=== PATIENT | female | born 1930 | race Hispanic/Latino ===

== ENCOUNTER 2016-12-15 10:33 | Inpatient (IN) | payer MEDICARE ==
[2016-12-15 10:34] VITALS: BMI 19.5
--- NOTE | 2016-12-15 11:09 | ED PDOC ---
Arrival/HPI - General Chief Complaint: Trauma Time Seen by Provider: 12/15/16 10:36 Historian: Patient, Family (Daughter) - History of Present Illness Narrative History of Present Illness (Text): 12/15/16 11:05 A 86 year old female, whose past medical history includes hypertension, hyperlipidemia, anemia, osteoporosis and 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 Daughter reports patient tripped 1 week ago, was brought to the emergency room and discharged home after normal xray and CT results. Daughter states patient tripped again 4 days ago landing on her buttock. Patient has been complaining of worsening chest wall pain and dry throat. Patient states the pain is worse with movement. Patient denies any fever , chills, nausea, vomiting, diarrhea, rectal bleeding, abdominal pain, urinary symptoms, chest pain, shortness of breath or any other complaints. PMD: Dr. Phillips Time/Duration: Other (Fall 1 week ago, Fall 4 days ago) Symptom Course: Worsening Quality: Other Context: Home Past Medical History - Provider Review Nursing Documentation Reviewed: Yes - Infectious Disease Hx of Infectious Diseases: None - Tetanus Immunization Tetanus Immunization: Unknown - Reproductive Menopause: Yes - Cardiac Hx OH: Yes Hx Hypertension: Yes - Pulmonary Hx Pulmonary Embolism: Yes - Neurological Hx Neurological Disorder: No - HEENT Hx HEENT Disorder: Yes Hx Glaucoma: Yes - Renal Hx Renal Disorder: No - Endocrine/Metabolic Hx Endocrine Disorders: No - Hematological/Oncological Hx Anemia: Yes - Integumentary Hx Dermatological Disorder: No Other/Comment: Skin CA - Musculoskeletal/Rheumatological Hx Arthritis: Yes Hx Osteoporosis: Yes - Gastrointestinal Hx Gall Bladder Disease: Yes (GALLSTONES) Hx Gastroesophageal Reflux: Yes Other/Comment: abd. surgery ? twisted intestine - Genitourinary/Gynecological Hx Genitourinary Disorders: Yes (LEFT OVARY REMOVED) - Psychiatric Hx Psychophysiologic Disorder: No Hx Substance Use: No - Surgical History Hx Cardiac Catheterization: Yes Other/Comment: left eye, left ovary. Lap Band sx - Anesthesia Hx Anesthesia: Yes Hx Anesthesia Reactions: No Hx Malignant Hyperthermia: No - Suicidal Assessment Feels Threatened In Home Enviroment: No Family/Social History - Physician Review Nursing Documentation Reviewed: Yes Family/Social History: No Known Family HX Smoking Status: Former Smoker Hx Alcohol Use: No Hx Substance Use: No Hx Substance Use Treatment: No Allergies/Home Meds Allergies/Adverse Reactions: Allergies clindamycin Allergy (Verified 01/31/16 20:03) RASH risedronate sodium [From Actonel] Allergy (Verified 01/31/16 20:03) RASH Home Medications: Home Meds Medication Instructions Recorded Confirmed Esomeprazole Magnesium [Nexium] 40 mg PO DAILY 09/28/16 12/15/16 Prednisone [Deltasone] 30 mg PO BID 12/15/16 12/15/16 Review of Systems - Physician Review All systems were reviewed & negative as marked: Yes - Review of Systems Constitutional: absent: Fevers, Night Sweats ENT: Other (Dry throat) Respiratory: absent: SOB Cardiovascular: absent: Chest Pain Gastrointestinal: absent: Abdominal Pain, Diarrhea, Nausea, Vomiting, Other ( Rectal bleeding) Genitourinary Female: absent: Dysuria, Frequency, Hematuria, Urine Output Changes Musculoskeletal: Other (Chest wall pain) Physical Exam Vital Signs Temp Pulse Resp BP Pulse Ox 12/15/16 14:20 98.2 F 89 20 141/81 98 12/15/16 11:19 97.9 F 88 20 141/81 96 Respiratory Rate: Tachypneic (Respiratory rate 30) Appearance: Positive for: Well-Appearing, Non-Toxic, Comfortable Pain Distress: None Mental Status: Positive for: Alert and Oriented X 3 - Systems Exam Head: Present: Atraumatic, Ecchymosis (on left chin). No: Tenderness, Swelling , Other (Step off) Pupils: Present: PERRL Extroacular Muscles: Present: EOMI Conjunctiva: Present: Normal Mouth: Present: Dry Pharnyx: Present: Normal. No: ERYTHEMA, EXUDATE, TONSILS ENLARGED Neck: Present: Normal Range of Motion Respiratory/Chest: Present: Good Air Exchange, Rhonchi (on left base), Tachypneic, Tender to Palpation (Ecchymosis and Tenderness to chest wall). No: Respiratory Distress, Accessory Muscle Use Cardiovascular: Present: Regular Rate and Rhythm, Normal S1, S2. No: Murmurs Abdomen: Present: Normal Bowel Sounds. No: Tenderness, Distention, Peritoneal Signs Back: Present: Normal Inspection Upper Extremity: Present: Normal Inspection. No: Cyanosis, Edema Lower Extremity: Present: Normal Inspection. No: Edema Neurological: Present: GCS=15, CN II-XII Intact, Speech Normal Skin: Present: Warm, Dry, Normal Color. No: Rashes Psychiatric: Present: Alert, Oriented x 3, Normal Insight, Normal Concentration Medical Decision Making ED Course and Treatment: 12/15/16 11:05 Impression: A 86 year old female with chest wall pain after 2 mechanical falls. Tenderness and ecchymosis noted on exam. Patient notes dry throat, dry mucous membranes on exam. Differential Diagnosis included but are not limited to: Sepsis secondary to PNA vs. Dehydration vs. Electrolyte abnormality, consider rib fracture rule out pneumothorax Plan: -- Head CT -- Angio chest CT -- Chest xray -- EKG -- Labs -- Blood and Urine culture -- Urinalysis -- IV fluids -- Reassess and disposition Prior Visits: Notes and results from previous visits were reviewed. Patient last seen in the ED on 12/08/16 after a mechanical fall. Patient had normal xrays and CT done and was discharged home. Progress Notes: EKG shows NSR at 94 BPM with PVC's. Interpreted by me. Report Date : 12/15/2016 12:19:10 Procedure: Chest xray Dictator : Guero Elias MD IMPRESSION: No active disease. Report Date : 12/15/2016 13:30:15 PROCEDURE: CT HEAD WITH CONTRAST Dictator : Guero Elias MD IMPRESSION: No evidence intracranial hemorrhage. The examination is somewhat limited by the presence of intravenous contrast. Age related atrophy and chronic white matter ischemic change. 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 Report Date : 12/15/2016 14:14:58 PROCEDURE: CT angiography chest, abdomen and pelvis Dictator : Guero Elias MD IMPRESSION: Examination technically suboptimal for evaluation of pulmonary embolism. No large central pulmonary embolism identified. No evidence of aortic transsection or dissection. No evidence of thoracic or abdominal aortic aneurysm. Small bilateral pleural effusion. No pneumothorax. Old compression deformities of these 6th through 8th thoracic vertebral bodies. No evidence of intra-abdominal visceral injury. Cholelithiasis. No evidence of hemoperitoneum. No acute osseous fracture identified. Evaluation of ribs limited due to patient motion. 12/15/16 14:[address] head was read as negative for ICH. Patient's head injury was 4 days ago so there was low suspicion for ICH. CT Chest Angio and CT Abd/Pelv with contrast was ordered by me. They didn't identify any PE. Exam was suboptimal. Low suspicion for PE. Patient's Chest Pain is due to her chest contusion. Since patient is still having pain from chest contusion and it makes it hard for her to breathe it's best to admit patient for further evaluation and monitoring. Troponin negative. Daughter is at bedside who was explained these findings with patient. I discussed case with Dr. Tucker Gordon who will take the patient onto her service. - Lab Interpretations Lab Results: 12/15/16 11:15 12/15/16 11:15 Lab Results 12/15/16 11:30: Urine Color Yellow, Urine Appearance Clear, Urine pH 6.0, Ur Specific [place] >= 1.030, Urine Protein 30 H, Urine Glucose (UA) Negative, Urine Ketones 40 H, Urine Blood Trace-intact H, Urine Nitrate Negative, Urine Bilirubin Negative, Urine Urobilinogen 0.2, Ur Leukocyte Esterase Negative, Urine RBC 0 - 2, Urine WBC 1 - 3, Ur Epithelial Cells 0 - 2, Urine Bacteria Few 12/15/16 11:15: WBC 6.6 D, RBC 4.27, Hgb 13.3, Hct 39.8, MCV 93.2, MCH 31.1, MCHC 33.4, RDW 13.7, Plt Count 159, MPV 9.8, Gran % 85.7 H, Lymph % (Auto) 9.6 L , [place] % (Auto) 4.7, Eos % (Auto) 0.0 L, Baso % (Auto) 0.0, Gran # 5.64, Lymph # 0.6 L, [place] # 0.3, Eos # 0.0, Baso # 0.00, PT 10.8, INR 1.00, APTT 27.0, pO2 91 H, VBG pH 7.41, VBG pCO2 38.0 L, VBG HCO3 24.1, VBG Total CO2 25.3, VBG O2 Sat (Calc) 98.4 H, VBG Base Excess -0.3 L, VBG Potassium 4.5, Glucose 118 H, Lactate 1.5, FiO2 21.0, Sodium 141.0, Potassium 4.4, Chloride 111.0 H, Carbon Dioxide 26, Anion Gap 12, BUN 24 H, Creatinine 0.7, Est GFR ( Amer) > 60 , Est GFR (Non-Af Amer) > 60, Random Glucose 114 H, Calcium 9.4, Phosphorus 3.6 , Magnesium 2.2, Total Bilirubin 1.0, AST 206 H, ALT 224 H, Alkaline Phosphatase 66, Troponin I 0.05 D, NT-Pro-B Natriuret Pep 549 H, Total Protein 7.2, Albumin 3.5, Globulin 3.7, Albumin/Globulin Ratio 0.9 L, Venous Blood Potassium 4.5 I have reviewed the lab results: Yes - RAD Interpretation Radiology Orders: 12/15/16 11:04 CHEST PORTABLE [RAD] Stat 12/15/16 11:59 ANGIO CHEST/ABDOMEN/PELVIS [CT] Stat 12/15/16 12:55 HEAD W/CONTRAST [CT] Stat - Medication Orders Current Medication Orders: Discontinued Medications Sodium Chloride 1,360 ml/ IV (SUPPLIES) 1,360 mls @ 2,721.54 mls/hr IV ONCE ONE PRN Reason: 60 ML/KG/HR Stop: 12/15/16 11:05 Last Admin: 12/15/16 11:15 Dose: 2,721.54 MLS/HR eMAR Start Stop Document 12/15/16 11:15 JOSSELYN (Rec: 12/15/16 11:42 JOSSELYN [id number]) Intravenous Solution Start Date 12/15/16 Start Time 11:15 End Date 12/15/16 End time 11:45 Total Infusion Time 30 Iodixanol (Visipaque 320 Mg/Ml 100 Ml) Confirm Administered Dose 100 ml IV .STK- MED ONE Stop: 12/15/16 12:24 Morphine Sulfate (Morphine) 2 mg IVP STAT STA Stop: 12/15/16 14:21 Last Admin: 12/15/16 14:29 Dose: 2 MG MAR Pain Assessment Document 12/15/16 14:29 JOSSELYN (Rec: 12/15/16 14:31 JOSSELYN [id number]) Pain Reassessment Is this a pain reassessment? Yes Location Left, Right or Bilateral Bilateral Description Intensity of Pain at present 7 IVP Administration Document 12/15/16 14:29 JOSSELYN (Rec: 12/15/16 14:31 JOSSELYN [id number]) Charges for Administration # of IVP Administrations 1 - Scribe Statement The provider has reviewed the documentation as recorded by the Lizibkeven De Leon Provider Scribe Attestation: All medical record entries made by the Scribe were at my direction and personally dictated by me. I have reviewed the chart and agree that the record accurately reflects my personal performance of the history, physical exam, medical decision making, and the department course for this patient. I have also personally directed, reviewed, and agree with the discharge instructions and disposition. Disposition/Present on Arrival - Present on Arrival Any Indicators Present on Arrival: No History of DVT/PE: No History of Uncontrolled Diabetes: No Urinary Catheter: No History of Decub. Ulcer: No History Surgical Site Infection Following: Abdominal Surgery - Disposition Have Diagnosis and Disposition been Completed?: Yes Diagnosis: Chest wall pain, Dehydration, Fall Disposition: HOSPITALIZED Disposition Time: 14:49 Patient Plan: Observation Condition: FAIR
[2016-12-15 11:33] LABS: ADD MANUAL DIFF? NO
[2016-12-15 11:35] LABS: VENOUS BLOOD GAS BASE EXCESS -0.3 mmol/L (0.0-2.0); VENOUS BLOOD PH 7.41 (7.32-7.43)
[2016-12-15 11:36] LABS: GRAN # 5.64 (1.4-6.5); GRAN % 85.7 % (50.0-68.0); HEMATOCRIT 39.8 % (36.0-48.0); LYMPH # 0.6 (1.2-3.4); LYMPH % 9.6 % (22.0-35.0); MEAN CELL VOLUME 93.2 fL (80.0-105.0); MEAN CORPUSCULAR HEMOGLOBIN 31.1 pg (25.0-35.0); MEAN CORPUSCULAR HGB CONC 33.4 g/dl (31.0-37.0); MEAN PLATELET VOLUME 9.8 fl (7.0-11.0); MONO # 0.3 (0.1-0.6); MONO % 4.7 % (1.0-6.0); PLATELET COUNT 159 10^3/uL (120.0-450.0); RED CELL DISTRIBUTION WIDTH 13.7 % (11.5-14.5); WHITE BLOOD COUNT 6.6 10^3/ul (4.5-11.0)
[2016-12-15 11:46] LABS: ALB/GLOB RATIO 0.9 (1.1-1.8); ALKALINE PHOSPHATASE 66 U/L (38-133); ALT/SGPT 224 U/L (7-56); AST/SGOT 206 U/L (15-39); BLOOD UREA NITROGEN 24 mg/dL (7-21); CALCIUM 9.4 mg/dL (8.4-10.5); CARBON DIOXIDE 26 mmol/L (21-33); CHLORIDE 107 mmol/L (98-107); GFR AFRICAN-AMERICAN > 60; GLUCOSE,RANDOM 114 mg/dL (70-110); MAGNESIUM 2.2 mg/dL (1.7-2.2); PHOSPHOROUS 3.6 mg/dL (2.5-4.5); POTASSIUM 4.4 mmol/L (3.6-5.0); SODIUM 141 mmol/L (132-148); TOTAL PROTEIN 7.2 g/dL (5.8-8.3)
[2016-12-15 11:52] LABS: URINE BILIRUBIN NEGATIVE (NEGATIVE); URINE BLOOD TRACE-INTACT (NEGATIVE); URINE GLUCOSE (UA) NEGATIVE (NEGATIVE); URINE KETONE 40 mg/dL (NEGATIVE); URINE LEUKOCYTE ESTERASE NEGATIVE Leu/uL (NEGATIVE); URINE PROTEIN 30 mg/dL (<30 mg/dL); URINE UROBILINOGEN 0.2 E.U./dL (<1 E.U./dL)
[2016-12-15 11:54] LABS: URINE COLOR YELLOW (YELLOW)
[2016-12-15 11:55] LABS: URINE APPEARANCE CLEAR (CLEAR)
[2016-12-15 11:58] LABS: TROPONIN I 0.05 ng/mL
[2016-12-15 12:07] LABS: URINE BACTERIA FEW (NEG); URINE EPITHELIAL CELLS 0 - 2 /hpf (0-5); URINE RBC 0 - 2 /hpf (0-2)
--- NOTE | 2016-12-15 12:20 | RAD ---
HISTORY: Sepsis Patient COMPARISON: 07/28/2016 FINDINGS: LUNGS: No active pulmonary disease. PLEURA: No significant pleural effusion identified, no pneumothorax apparent. CARDIOVASCULAR: Normal. OSSEOUS STRUCTURES: No significant abnormalities. VISUALIZED UPPER ABDOMEN: Normal. OTHER FINDINGS: None. IMPRESSION: No active disease.
[2016-12-15] MEDS ORDERED: Iodixanol 320 MG/ML 100 ML BOTTLE IV ONE (12:23)
--- NOTE | 2016-12-15 13:31 | CT ---
PROCEDURE: CT HEAD WITH CONTRAST HISTORY: hx of falling COMPARISON: None available. TECHNIQUE: Axial computed tomography images were obtained through the head/brain with intravenous contrast. Contrast dose: 100 mL Omnipaque 350 Radiation dose: Total exam DLP = 677.45 mGy-cm. This CT exam was performed using one or more of the following dose reduction techniques: Automated exposure control, adjustment of the mA and/or kV according to patient size, and/or use of iterative reconstruction technique. FINDINGS: HEMORRHAGE: No intracranial hemorrhage. Please note that performance of the examination following intravenous contrast administration diminishes the sensitivity for detection of subtle extra-axial hemorrhage. BRAIN: No intracranial mass. 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 Moderate diffuse atrophy. Moderate periventricular and deep white matter lucency consistent with microvascular ischemic change. Evaluation of the posterior fossa and inferior temporal lobes is limited by patient motion artifact. VENTRICLES: Unremarkable. No hydrocephalus. CALVARIUM: Unremarkable. PARANASAL SINUSES: Unremarkable as visualized. No significant inflammatory changes. MASTOID AIR CELLS: Unremarkable as visualized. No mastoid effusion. OTHER FINDINGS: None. IMPRESSION: No evidence intracranial hemorrhage. The examination is somewhat limited by the presence of intravenous contrast. Age related atrophy and chronic white matter ischemic change. 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
--- NOTE | 2016-12-15 14:16 | CT ---
PROCEDURE: CT angiography chest, abdomen and pelvis HISTORY: SOB, chest wall injury r/o fx; h/o melanoma r/o PE COMPARISON: CT angio chest 05/30/2015 TECHNIQUE: 1.25 mm contiguous axial sections were acquired through the chest, abdomen and pelvis during bolus intravenous contrast administration. Sagittal and coronal images were reformatted. Contrast administered: 100 mL Visipaque 320 Total exam DLP: 440.70 mGy-cm FINDINGS: The examination is technically suboptimal for evaluation of pulmonary arteries. No large central pulmonary embolus is identified in the right and left pulmonary artery. Lobar and segmental pulmonary artery branches cannot be evaluated for pulmonary embolism on the basis of this examination. There is no evidence of thoracic aortic dissection or transsection. There is no evidence of thoracic or abdominal aortic aneurysm. There is no pneumothorax. The lungs are free of consolidation. There is minimal compressive atelectasis in both lower lobes secondary to small pleural effusions. Heart is normal in size. There is no pericardial effusion. There is no mediastinal lymphadenopathy. Evaluation of the chest wall for rib fracture is somewhat limited due to patient motion artifact. There is no rib fracture identified. There is an abnormal appearance of the right 9th rib posteriorly unchanged from prior CT, possibly due to old trauma. The rib appears flattened over a moderate segment. There is severe compression deformity of the 6th 7th and 8th thoracic vertebral bodies unchanged in appearance from prior CT angiogram of 05/30/2015. There is resulting angular kyphosis at the level of these compression fractures. ABDOMEN AND PELVIS: Liver: Normal size and contour. No mass. No biliary ductal dilatation. Gallbladder: Peripherally calcified gallstone. No mural thickening. Spleen: Normal size. No mass. No evidence of laceration or hematoma. Pancreas: Unremarkable. Adrenals: Unremarkable. Kidneys: No mass, calculus or hydronephrosis. Bowel: No abnormal bowel loops identified. Bladder: Unremarkable. Reproductive: Unremarkable postmenopausal uterus. Note is made of nonspecific presacral edema. Bones: Grade 1 anterolisthesis at L4-5 without spondylolysis. No fracture. Pelvis, sacrum and hips appear intact. IMPRESSION: Examination technically suboptimal for evaluation of pulmonary embolism. No large central pulmonary embolism identified. No evidence of aortic transsection or dissection. No evidence of thoracic or abdominal aortic aneurysm. Small bilateral pleural effusion. No pneumothorax. Old compression deformities of these 6th through 8th thoracic vertebral bodies. No evidence of intra-abdominal visceral injury. Cholelithiasis. No evidence of hemoperitoneum. No acute osseous fracture identified. Evaluation of ribs limited due to patient motion.
[2016-12-15] MEDS ORDERED: Morphine 2 mg/ml ISec IVP STA (14:20)
--- NOTE | 2016-12-15 16:30 | CP.PCM.HP ---
<Marco A Wade - Last Filed: 12/15/16 16:40> History of Present Illness - History of Present Illness History of Present Illness: 86 year old female, whose past medical history includes hypertension, hyperlipidemia, anemia, osteoporosis and 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 Daughter reports patient tripped 1 week ago, was brought to the emergency room and discharged home after normal xray and CT results. Daughter states patient tripped again 4 days ago landing on her buttock. Patient has been complaining of worsening chest wall pain and dry throat. Patient states the pain is worse with movement. Pain is reproducible. She reports lack of appetite and dysphagia. Patient denies any fever, chills, nausea, vomiting, diarrhea, rectal bleeding, abdominal pain, urinary symptoms, shortness of breath, syncopy, or any other complaints. In the past pt was seen by [employer]. In his note, pt had PE , NSTEMI, had cardiac cath in the past at [facility]. SS: non smoker, no drinks, Lives at home by herself. Daughter lives near by. Present on Admission - Present on Admission Any Indicators Present on Admission: No Review of Systems - Review of Systems Review of Systems: See HPI Past Patient History - Infectious Disease Hx of Infectious Diseases: None - Tetanus Immunizations Tetanus Immunization: Unknown - Past Medical History & Family History Past Medical History?: Yes - Past Social History Smoking Status: Former Smoker - CARDIAC Hx Heart Attack: Yes Hx Hypertension: Yes - PULMONARY Hx Pulmonary Embolism: Yes - NEUROLOGICAL Hx Neurological Disorder: No - HEENT Hx HEENT Problems: Yes Hx Glaucoma: Yes - RENAL Hx Chronic Kidney Disease: No - ENDOCRINE/METABOLIC Hx Endocrine Disorders: No - HEMATOLOGICAL/ONCOLOGICAL Hx Anemia: Yes - INTEGUMENTARY Hx Dermatological Problems: No Other/Comment: Skin CA - MUSCULOSKELETAL/RHEUMATOLOGICAL Hx Arthritis: Yes Hx Osteoporosis: Yes - GASTROINTESTINAL Hx Gall Bladder Disease: Yes (GALLSTONES) Hx Gastroesophageal Reflux: Yes Other/Comment: abd. surgery ? twisted intestine - GENITOURINARY/GYNECOLOGICAL Hx Genitourinary Disorders: Yes (LEFT OVARY REMOVED) - PSYCHIATRIC Hx Psychophysiologic Disorder: No Hx Substance Use: No - SURGICAL HISTORY Hx Cardiac Catheterization: Yes Other/Comment: left eye, left ovary. Lap Band sx - ANESTHESIA Hx Anesthesia: Yes Hx Anesthesia Reactions: No Hx Malignant Hyperthermia: No Meds Allergies/Adverse Reactions: Allergies Allergy/AdvReac Type Severity Reaction Status Date / Time clindamycin Allergy RASH Verified 12/15/16 17:36 risedronate sodium Allergy RASH Verified 12/15/16 17:36 [From Actonel] Physical Exam - Constitutional Appears: Cachectic - Head Exam Head Exam: NORMOCEPHALIC Additional comments: Eccymosis on the chin - Eye Exam Eye Exam: EOMI, Normal appearance, PERRL Pupil Exam: NORMAL ACCOMODATION, PERRL - ENT Exam ENT Exam: Mucous Membranes Moist, Normal Exam - Neck Exam Neck exam: Positive for: Normal Inspection - Respiratory Exam Respiratory Exam: Clear to Auscultation Bilateral, NORMAL BREATHING PATTERN. absent: Accessory Muscle Use, Respiratory Distress - Cardiovascular Exam Cardiovascular Exam: REGULAR RHYTHM, +S1, +S2. absent: Bradycardia, Tachycardia , Gallop, JVD, Rubs - GI/Abdominal Exam GI & Abdominal Exam: Normal Bowel Sounds, Soft. absent: Distended, Tenderness - Exam Exam: NORMAL INSPECTION - Extremities Exam Extremities exam: Positive for: full ROM, normal capillary refill, pedal pulses present. Negative for: pedal edema, tenderness - Back Exam Back exam: NORMAL INSPECTION - Neurological Exam Neurological exam: Alert, CN II-XII Intact, Oriented x3, Reflexes Normal - Psychiatric Exam Psychiatric exam: Normal Affect, Normal Mood - Skin Skin Exam: Abrasion, Dry, Intact, Petechiae, Warm Additional comments: Ecchymosis on the chest, legs, chin, arms. Results - Vital Signs Recent Vital Signs: Last Vital Signs Temp 98.2 F 12/15/16 14:20 Pulse 95 H 12/15/16 15:51 Resp 20 12/15/16 15:51 BP 135/79 12/15/16 15:51 Pulse Ox 98 12/15/16 15:51 - Labs Result Diagrams: 12/15/16 11:15 12/15/16 11:15 Labs: Laboratory Results - last 24 hr 12/15/16 12/15/16 11:15 11:30 WBC 6.6 D RBC 4.27 Hgb 13.3 Hct 39.8 MCV 93.2 MCH 31.1 MCHC 33.4 RDW 13.7 Plt Count 159 MPV 9.8 Gran % 85.7 H Lymph % (Auto) 9.6 L [place] % (Auto) 4.7 Eos % (Auto) 0.0 L Baso % (Auto) 0.0 Gran # 5.64 Lymph # 0.6 L [place] # 0.3 Eos # 0.0 Baso # 0.00 PT 10.8 INR 1.00 APTT 27.0 pO2 91 H VBG pH 7.41 VBG pCO2 38.0 L VBG HCO3 24.1 VBG Total CO2 25.3 VBG O2 Sat (Calc) 98.4 H VBG Base Excess -0.3 L VBG Potassium 4.5 Sodium 141 Chloride 107 Glucose 118 H Lactate 1.5 FiO2 21.0 Potassium 4.4 Carbon Dioxide 26 Anion Gap 12 BUN 24 H Creatinine 0.7 Est GFR ( Amer) > 60 Est GFR (Non-Af Amer) > 60 Random Glucose 114 H Calcium 9.4 Phosphorus 3.6 Magnesium 2.2 Total Bilirubin 1.0 AST 206 H ALT 224 H Alkaline Phosphatase 66 Troponin I 0.05 D NT-Pro-B Natriuret Pep 549 H Total Protein 7.2 Albumin 3.5 Globulin 3.7 Albumin/Globulin Ratio 0.9 L Venous Blood Potassium 4.5 Urine Color Yellow Urine Appearance Clear Urine pH 6.0 Ur Specific [place] >= 1.030 Urine Protein 30 H Urine Glucose (UA) Negative Urine Ketones 40 H Urine Blood Trace-intact H Urine Nitrate Negative Urine Bilirubin Negative Urine Urobilinogen 0.2 Ur Leukocyte Esterase Negative Urine RBC 0 - 2 Urine WBC 1 - 3 Ur Epithelial Cells 0 - 2 Urine Bacteria Few Assessment & Plan - Assessment and Plan (Free Text) Assessment: 86 F s/p fall CP 2/[address]: no acute disease, no fracture. Chronic changes. -Trop neg: f/u repeat -f/u repeat EKG -Tramadol PRN -Cardio cs : Dr. Mathias -f/u Rib xray Transaminitis AST:206 ALT:224 -Hold statin, Tylenol Dehydration -NS 50 -HHD HTN -Metoprolol HLD -Statin DW attending <Tucker Gordon - Last Filed: 12/16/16 17:40> Results - Vital Signs Recent Vital Signs: Last Vital Signs Temp 97 F L 12/16/16 17:05 Pulse 84 12/16/16 17:05 Resp 18 12/16/16 17:05 BP 130/77 12/16/16 17:05 Pulse Ox 98 12/16/16 17:05 - Labs Result Diagrams: 12/16/16 06:30 12/16/16 06:30 Labs: Laboratory Results - last 24 hr 12/16/16 06:30 WBC 7.7 RBC 3.86 Hgb 12.0 Hct 36.1 MCV 93.5 MCH 31.1 MCHC 33.2 RDW 13.9 Plt Count 144 MPV 9.4 Gran % 81.0 H Lymph % (Auto) 7.7 L [place] % (Auto) 11.3 H Eos % (Auto) 0.0 L Baso % (Auto) 0.0 Gran # 6.21 Lymph # 0.6 L [place] # 0.9 H Eos # 0.0 Baso # 0.00 Sodium 141 Potassium 4.3 Chloride 108 H Carbon Dioxide 27 Anion Gap 10 BUN 23 H Creatinine 0.7 Est GFR ( Amer) > 60 Est GFR (Non-Af Amer) > 60 Random Glucose 99 Calcium 8.5 Total Bilirubin 0.9 AST 138 H ALT 175 H Alkaline Phosphatase 51 Troponin I 0.05 Total Protein 5.9 Albumin 2.9 L Globulin 3.0 Albumin/Globulin Ratio 1.0 L TSH 3rd Generation 0.83 Attending/Attestation - Attestation I have personally seen and examined this patient.: Yes I have fully participated in the care of the patient.: Yes I have reviewed all pertinent clinical information: Yes Notes (Text): I have seen and examined patient at bedside with the resident. Agree with the residents note with the following additions/ exceptions: This is 86 year old female who lives alone with history of HTN, dyslipidemia,OK, PE, anemia, osteoporosis, melanoma, multiple falls who got admitted for evaluation of chest pain which is reproducible to palpation. She denies LOC and states that she feels weak over all and has been falling for the past couple of months. Appetite has decreased. There is a bruise on her anterior chest wall which is tender. CT showed chronic changes. As she has h/o htn, OK, will order for serial troponins, ekg and cardiology consult. Will order for rib series. She appears dehydrated. She also has transaminitis which can be due to hypotension. Will order for PT eval. Will also order for Swallow eval. Discussed in detail with the patient. Dr Tucker Gordon
[2016-12-15] MEDS: Sodium Chloride 0.9% 1,000 ML IV SCH (18:03)
[2016-12-15] MEDS ORDERED: Pneumococcal 23-Valent Vaccine IM ONE (19:17)
[2016-12-16 07:00] LABS: ADD MANUAL DIFF? NO
[2016-12-16 07:03] LABS: GRAN # 6.21 (1.4-6.5); HEMATOCRIT 36.1 % (36.0-48.0); LYMPH # 0.6 (1.2-3.4); LYMPH % 7.7 % (22.0-35.0); MEAN CELL VOLUME 93.5 fL (80.0-105.0); MEAN CORPUSCULAR HEMOGLOBIN 31.1 pg (25.0-35.0); MEAN CORPUSCULAR HGB CONC 33.2 g/dl (31.0-37.0); MEAN PLATELET VOLUME 9.4 fl (7.0-11.0); MONO # 0.9 (0.1-0.6); MONO % 11.3 % (1.0-6.0); PLATELET COUNT 144 10^3/uL (120.0-450.0); RED CELL DISTRIBUTION WIDTH 13.9 % (11.5-14.5); WHITE BLOOD COUNT 7.7 10^3/ul (4.5-11.0)
[2016-12-16 07:19] LABS: ALKALINE PHOSPHATASE 51 U/L (38-133); ALT/SGPT 175 U/L (7-56); AST/SGOT 138 U/L (15-39); BILIRUBIN,TOTAL 0.9 mg/dL (0.2-1.3); BLOOD UREA NITROGEN 23 mg/dL (7-21); CALCIUM 8.5 mg/dL (8.4-10.5); CARBON DIOXIDE 27 mmol/L (21-33); CHLORIDE 108 mmol/L (98-107); GFR AFRICAN-AMERICAN > 60; GLUCOSE,RANDOM 99 mg/dL (70-110); POTASSIUM 4.3 mmol/L (3.6-5.0); SODIUM 141 mmol/L (132-148); TOTAL PROTEIN 5.9 g/dL (5.8-8.3)
[2016-12-16 07:29] LABS: TROPONIN I 0.05 ng/mL
--- NOTE | 2016-12-16 11:14 | CARD ---
APPROVED REPORT EKG Measurement Heart [id number] <Conclusion> Sinus rhythm with premature supraventricular complexes which are new
--- NOTE | 2016-12-16 11:49 | CP.PCM.PN ---
<Jennifer Wade - Last Filed: 12/17/16 06:52> Subjective - Date & Time of Evaluation Date of Evaluation: 12/16/16 Time of Evaluation: 08:30 - Subjective Subjective: Pt seen and evaluated at the bedside. Pt continues to have R sided chest pain. Afebrile. Objective - Vital Signs/Intake and Output Vital Signs (last 24 hours): Temp Pulse Resp BP Pulse Ox 97.5 F L 106 H 20 112/64 94 L 12/16/16 06:00 12/16/16 10:00 12/16/16 08:00 12/16/16 06:00 12/16/16 06:00 Intake and Output: 12/16/16 12/16/16 06:59 18:59 Intake Total 120 Output Total 950 Balance -830 - Medications Medications: Current Medications Sodium Chloride (Sodium Chloride 0.9%) 1,000 mls @ 50 mls/hr IV .Q20H [facility]ER[facility] Last Admin: 12/15/16 18:03 Dose: 50 mls/hr Pantoprazole Sodium (Protonix Inj) 40 mg IVP DAILY [facility] Last Admin: 12/16/16 09:41 Dose: 40 mg Tramadol HCl (Ultram) 25 mg PO TID PRN PRN Reason: pain Last Admin: 12/16/16 09:41 Dose: 25 mg - Labs Labs: 12/16/16 06:30 12/16/16 06:30 PT 10.8 Seconds (9.9-11.8) 12/15/16 11:15 INR 1.00 (0.93-1.08) 12/15/16 11:15 APTT 27.0 Seconds (23.7-30.8) 12/15/16 11:15 - Additional Findings Additional findings: - Constitutional Appears: Cachectic - Head Exam Head Exam: NORMOCEPHALIC Additional comments: Ecchymosis on the chin - Eye Exam Eye Exam: EOMI, Normal appearance, PERRL Pupil Exam: NORMAL ACCOMODATION, PERRL - ENT Exam ENT Exam: Mucous Membranes Moist, Normal Exam - Neck Exam Neck exam: Positive for: Normal Inspection - Respiratory Exam Respiratory Exam: Clear to Auscultation Bilateral, NORMAL BREATHING PATTERN. absent: Accessory Muscle Use, Respiratory Distress - Cardiovascular Exam Cardiovascular Exam: tachycardia, +S1, +S2. - GI/Abdominal Exam GI & Abdominal Exam: Normal Bowel Sounds, Soft. absent: Distended, Tenderness - Exam Exam: NORMAL INSPECTION - Extremities Exam Extremities exam: Positive for: full ROM, normal capillary refill, pedal pulses present. Negative for: pedal edema, tenderness - Back Exam Back exam: NORMAL INSPECTION - Neurological Exam Neurological exam: Alert, awake - Skin Skin Exam: Abrasion, Dry, Intact, Petechiae, Warm Additional comments: Ecchymosis on the chest, legs, chin, arms. Assessment and Plan - Assessment and Plan (Free Text) Plan: 86 F s/p fall CP 2/[address]: no acute disease, no fracture. Chronic changes. -Trop 0.05 x2 -initial EKG NSR at 94 BPM with PVC, second ekg has nsr at 83 bpm with pvc and prolonged OK intervals. -Tramadol PRN -Cardio cs : Dr. Mathias -f/u Rib xray expected to be done by 3 pm today -f/u echo which is currently being conducted Transaminitis AST:206-->138, ALT:224-->175 -Hold statin, Tylenol Dehydration -NS 50 -HHD HTN -Metoprolol HLD -Statin held for transaminitis DW attending <Tucker Gordon B - Last Filed: 12/17/16 10:46> Objective - Vital Signs/Intake and Output Vital Signs (last 24 hours): Temp Pulse Resp BP Pulse Ox 97.5 F L 91 H 20 124/80 98 12/17/16 06:00 12/17/16 10:00 12/17/16 06:00 12/17/16 06:00 12/17/16 06:00 Intake and Output: 12/17/16 12/17/16 06:59 18:59 Intake Total 0 Output Total 300 Balance -300 - Medications Medications: Current Medications Sodium Chloride (Sodium Chloride 0.9%) 1,000 mls @ 80 mls/hr IV .[id number] [facility] Last Admin: 12/17/16 04:44 Dose: 80 mls/hr Pantoprazole Sodium (Protonix Inj) 40 mg IVP DAILY [facility] Last Admin: 12/17/16 09:19 Dose: 40 mg Tramadol HCl (Ultram) 50 mg PO TID PRN PRN Reason: Pain, severe (8-10) - Labs Labs: 12/17/16 06:57 12/17/16 06:57 PT 10.8 Seconds (9.9-11.8) 12/15/16 11:15 INR 1.00 (0.93-1.08) 12/15/16 11:15 APTT 27.0 Seconds (23.7-30.8) 12/15/16 11:15 Attending/Attestation - Attestation I have personally seen and examined this patient.: Yes I have fully participated in the care of the patient.: Yes I have reviewed all pertinent clinical information, including history, physical exam and plan: Yes Notes (Text): I have seen and examined patient at bedside with the resident. Agree with the residents note with the following additions/ exceptions: This is 86 year old female who lives alone with history of HTN, dyslipidemia,PR, PE, anemia, osteoporosis, melanoma, multiple falls who got admitted for evaluation of chest pain which is reproducible to palpation. She denies LOC and states that she feels weak over all and has been falling for the past couple of months. Appetite has decreased. There is a bruise on her anterior chest wall which is tender. CT showed chronic changes. Serial troponins and EKG within normal limits. Cardiology consult appreciated. Echo pending. Denies any jaw pain today. Rib series result pending. Dehydration has improved. She also has transaminitis which has been improving. Abdominal ultrasound showed fatty infiltration. PT eval was done and they recommended PRAVEEN for her. Will discuss with human services case manager tomorrow. Discussed in detail with the patient. Dr Tucker Gordon
--- NOTE | 2016-12-16 16:19 | US ---
HISTORY: r/o fatty liver COMPARISON: CT angio chest, pelvis performed 12/15/16 TECHNIQUE: Sonographic evaluation of the right upper quadrant of the abdomen. FINDINGS: Examination limited by bowel gas. LIVER: Measures 13.6 cm in length. Echogenic liver may be seen in setting of hepatic parenchymal disease or fatty infiltration. No focal hepatic mass identified. The main portal vein appears patent with normal directional flow. No intrahepatic bile duct dilatation. GALLBLADDER: Gallstones. No gallbladder wall thickening or pericholecystic edema identified. Negative sonographic Hamilton sign as assessed by the consumer loan processor. COMMON BILE DUCT: Measures 2 mm. PANCREAS: Not well-visualized. RIGHT KIDNEY: Measures 11.3 x 4.0 x 5.3 cm. No obstructing calculus or hydronephrosis identified. AORTA: Limited visualization appears grossly unremarkable. IVC: Limited visualization appears grossly unremarkable. OTHER FINDINGS: None . IMPRESSION: Examination markedly degraded by extensive bowel gas. Echogenic liver may be seen in setting of hepatic parenchymal disease or fatty infiltration. Cholelithiasis.
--- NOTE | 2016-12-16 16:55 | RAD ---
PROCEDURE: Temporomandibular joints dated 12/16/2016 HISTORY: Joint pain. COMPARISON: Correlation made with CT scan brain 12/15/2016 Rich incompletely visualized the TMT joints. TECHNIQUE: Multiple views of the TM joints both in open and closed-mouth position performed. Part of the study was performed supine and supine cross-table lateral positioning which is quite limited. Mandibular condyles and TMT joints are not well delineated FINDINGS: No definitive evidence of acute displaced fracture nor dislocation. TMT joints so far as can be seen appear intact appropriately located. The left mandibular condyles as seen on prior CT scan appears unremarkable appropriately located. The right mandibular condyles is incompletely visualized though there also appears to be appropriately located. Consider followup CT scan of the mandible further evaluation if there is history of trauma and fracture suspected. MRI of the TMJs could be performed to assess for atraumatic derangement if necessary. IMPRESSION: At Impression: Limited study. No definitive evidence of acute displaced fracture nor dislocation. Consider followup PET-CT scan for further evaluation if there is history trauma and fracture suspected. MRI of the TMJs could be performed if atraumatic of derangement suspected
[2016-12-16] MEDS: Sodium Chloride 0.9% 1,000 ML IV SCH (17:25)
--- NOTE | 2016-12-16 19:44 | CON ---
DATE: 12/16/2016 REASON FOR CONSULTATION: Chest pain. HISTORY OF PRESENT ILLNESS: The patient is an 86-year-old female who has history of hypertension, hyperlipidemia, osteoporosis and melanoma, on immunotherapy, which patient was admitted because of recurrent falls as well as persistent sharp chest pain. The patient denies any history of heart attack in the past. The patient lives by herself in a senior citizens home with frequent visits from her daughter that, according to the patient, her daughter is not allowed to stay with her in that senior citizen's home. The patient has been experiencing poor appetite, but denies any abdominal pain, nausea or vomiting. The patient, according to history and physical notes, had a history of an RI and underwent cardiac catheterization at [facility] in the past. HOME MEDICATIONS: Include Lopressor 25 mg once a day, simvastatin 20 mg once a day, Nexium 40 mg p.o. once a day, prednisone at 30 mg twice a day. CURRENT HOSPITAL MEDICATIONS: Protonix 40 mg intravenously twice a day, normal saline at 50 mL an hour, Ultram 25 mg t.i.d. REVIEW OF SYSTEMS: No nausea or vomiting, no fever or chills. The patient denies any palpitation. PHYSICAL EXAMINATION: GENERAL: The patient is an elderly female who does not appear to be in acute distress. VITAL SIGNS: Blood pressure 138/77, heart rate 84, temperature 97, respirations 18. HEENT: No pallor or icterus. NECK: No JVD. CHEST: An abrasion is noted in the anterior chest wall. LUNGS: Clear. HEART: S1, S2 regular. ABDOMEN: Soft. EXTREMITIES: No edema. Significant muscle wasting. LABORATORY DATA: CBC: WBC of 7.7, hemoglobin 12.0, hematocrit 36.1, platelet count 144,000. White count and platelet count are within normal limits. SMA-7: Sodium 141, potassium 4.3, chloride 108, CO2 27, glucose 99, BUN 23, creatinine 0.7. Two sets of troponins are 0.05. TSH level is within normal limits. PT, PTT are within normal limits. EKG revealed sinus rhythm with premature atrial complexes. The stress test report from 04/2015 revealed normal Lexiscan, ejection fraction 63%. CT angio of the chest, abdomen and pelvis, suboptimal for evaluation for pulmonary embolism. No large central pulmonary embolus identified. No evidence of aortic dissection. No evidence of aortic aneurysm. Small bilateral pleural effusion. compression deformity of T6 through T8 thoracic vertebral body. Cholelithiasis. No acute osseous fracture is identified. Temporomandibular joint x-ray limited study. No evidence of acute displaced fracture or dislocation. ASSESSMENT: 1. Recurrent falls. 2. Rule out rib fracture. 3. Reported history of coronary artery disease. 4. History of hypertension and hyperlipidemia. 5. History of melanoma on immunotherapy. RECOMMENDATIONS: Continue current Protonix at 40 mg intravenously daily. Increase normal saline to 80 mL an hour. I will review the echocardiograph study performed today. Consider initiating dietary supplement such as Ensure 3 times a day. Case was discussed with the medical art therapist. Alessandro Whiting MD cc: [id number] TT: 12/16/2016 19:43:41 Confirmation # [id number] Dictation # [id number] iveth STOUT
[2016-12-17] MEDS: Sodium Chloride 0.9% 1,000 ML IV SCH ×2 (04:44→17:09)
[2016-12-17 07:00] LABS: ADD MANUAL DIFF? NO
[2016-12-17 07:20] LABS: ALB/GLOB RATIO 0.9 (1.1-1.8); ALKALINE PHOSPHATASE 50 U/L (38-133); ALT/SGPT 155 U/L (7-56); AST/SGOT 113 U/L (15-39); BILIRUBIN,TOTAL 0.7 mg/dL (0.2-1.3); BLOOD UREA NITROGEN 21 mg/dL (7-21); CARBON DIOXIDE 28 mmol/L (21-33); CHLORIDE 107 mmol/L (95-110); GFR AFRICAN-AMERICAN > 60; GLUCOSE,RANDOM 88 mg/dL (70-110); SODIUM 141 mmol/L (132-148); TOTAL PROTEIN 5.6 g/dL (5.8-8.3)
[2016-12-17 07:21] LABS: GRAN # 3.08 (1.4-6.5); GRAN % 65.8 % (50.0-68.0); HEMATOCRIT 34.8 % (36.0-48.0); LYMPH # 0.8 (1.2-3.4); LYMPH % 17.7 % (22.0-35.0); MEAN CELL VOLUME 94.6 fL (80.0-105.0); MEAN CORPUSCULAR HEMOGLOBIN 30.4 pg (25.0-35.0); MEAN CORPUSCULAR HGB CONC 32.2 g/dl (31.0-37.0); MEAN PLATELET VOLUME 9.7 fl (7.0-11.0); MONO # 0.8 (0.1-0.6); MONO % 16.5 % (1.0-6.0); PLATELET COUNT 128 10^3/uL (120.0-450.0); WHITE BLOOD COUNT 4.7 10^3/ul (4.5-11.0)
--- NOTE | 2016-12-17 09:05 | CARD ---
APPROVED REPORT EXAM: Two-dimensional and M-mode echocardiogram with Doppler and color Doppler. Other Information Quality : PoorRhythm : INDICATION Chest Pain 2D DIMENSIONS Left Atrium (2D)1.8 (1.6-4.0cm)IVSd1.2 (0.7-1.1cm) Aortic Root (2D)2.7 (2.0-3.7cm)LVDd3.5 (3.9-5.9cm) PWd1.2 (0.7-1.1cm)LVDs2.6 (2.5-4.0cm) FS (%) 27.0 %LVEF (%)53.0 (>50%) Aortic Valve AoV Peak Coszpfoo537.0cm/sAoV VTI27.2cmLVOT Peak Dncvarem24.1cm/s LVOT VTI18.50cm Mitral Valve MV E Mribjiye85.7cm/sMV A Lbifaqbq286.0cm/sE/A ratio0.8 TDI Lateral E' Peak V8.19cm/sMedial E' Peak V5.17cm/sE/Lateral E'10.1 E/Medial E'16.0 Tricuspid Valve TR Peak Ypwuengk878mu/sTR Peak Gr.20mmHg LEFT VENTRICLE The left ventricle is normal size. There is mild concentric left ventricular hypertrophy. The left ventricular function is normal. The left ventricular ejection fraction is within the normal range. There is normal LV segmental wall motion. RIGHT VENTRICLE The right ventricle is normal size. ATRIA The left atrium size is normal. The right atrium size is normal.. AORTIC VALVE The aortic valve is moderately calcified. MITRAL VALVE The mitral valve is mildly thickened but opens well.. Mitral regurgitation is trace. TRICUSPID VALVE The tricuspid valve is normal in structure. There is trace tricuspid regurgitation. PULMONIC VALVE The pulmonic valve is not well visualized. GREAT VESSELS The aortic root is normal in size. PERICARDIAL EFFUSION There is no pericardial effusion. <Conclusion> Limited Study. The left ventricle is normal size. There is mild concentric left ventricular hypertrophy. The left ventricular function is normal. The aortic valve is moderately calcified. Aortic sclerosis. Mitral regurgitation is trace. There is trace tricuspid regurgitation.
--- NOTE | 2016-12-17 09:31 | CARD ---
APPROVED REPORT EKG Measurement Heart [id number] DE 180P19 [id number] <Conclusion> Sinus rhythm with premature atrial complexes with aberrant conduction No change
--- NOTE | 2016-12-17 10:13 | CARD ---
APPROVED REPORT EKG Measurement Heart [id number] [place] 184P34 [id number] <Conclusion> Normal sinus rhythm Normal ECG
--- NOTE | 2016-12-17 12:44 | CP.PCM.PN ---
<Juanita Allen - Last Filed: 12/17/16 12:37> Subjective - Date & Time of Evaluation Date of Evaluation: 12/17/16 Time of Evaluation: 12:37 - Subjective Subjective: HOSPITALIST PROGRESS NOTE Patient is seen and examined at bedside. No acute events overnight. Patient states that she has rib pain with movement but not otherwise. She denies having any SOB, abd pain, N/V, jaw pain. Patient still is having a hard time swallowing food. Patient also c/o constipation. Last BM was 2 days ago. Pt has tissue paper with blood that she states is from her nose. Objective - Vital Signs/Intake and Output Vital Signs (last 24 hours): Temp Pulse Resp BP Pulse Ox 99.7 F H 102 H 21 147/93 H 98 12/17/16 12:00 12/17/16 12:00 12/17/16 12:00 12/17/16 12:00 12/17/16 06:00 Intake and Output: 12/17/16 12/17/16 06:59 18:59 Intake Total 0 Output Total 300 Balance -300 - Medications Medications: Current Medications Benzonatate (Tessalon Perles) 100 mg PO TID [facility] Sodium Chloride (Sodium Chloride 0.9%) 1,000 mls @ 80 mls/hr IV .[id number] [facility] Last Admin: 12/17/16 04:44 Dose: 80 mls/hr Pantoprazole Sodium (Protonix Inj) 40 mg IVP DAILY [facility] Last Admin: 12/17/16 09:19 Dose: 40 mg Sodium Chloride ([place] Nasal [place]) 0 ml NS TID PRN PRN Reason: Nasal congestion Tramadol HCl (Ultram) 50 mg PO TID PRN PRN Reason: Pain, severe (8-10) - Labs Labs: 12/17/16 06:57 12/17/16 06:57 PT 10.8 Seconds (9.9-11.8) 12/15/16 11:15 INR 1.00 (0.93-1.08) 12/15/16 11:15 APTT 27.0 Seconds (23.7-30.8) 12/15/16 11:15 - Constitutional Appears: Non-toxic, No Acute Distress - Head Exam Head Exam: ATRAUMATIC - ENT Exam ENT Exam: Mucous Membranes Moist Additional comments: dry blood noted around nares - Respiratory Exam Respiratory Exam: Clear to Ausculation Bilateral. absent: Rales, Rhonchi, Wheezes - Cardiovascular Exam Cardiovascular Exam: REGULAR RHYTHM, +S1, +S2. absent: Gallop, Rubs, Murmur Additional comments: developing bruise in center of chest - GI/Abdominal Exam GI & Abdominal Exam: Soft, Normal Bowel Sounds. absent: Distended, Firm, Guarding, Rigid, Tenderness - Extremities Exam Extremities Exam: absent: Pedal Edema, Tenderness - Neurological Exam Neurological Exam: Alert, Awake, Oriented x3 - Psychiatric Exam Psychiatric exam: Normal Affect, Normal Mood - Skin Skin Exam: Dry, Intact, Warm Assessment and Plan - Assessment and Plan (Free Text) Assessment: 86 F s/p fall with c/o of chest pain 1. CP 2/2 trauma -CTA chest abd pelvis: negative -Trop 0.05 x3 -initial EKG NSR at 94 BPM with PVC, second ekg has nsr at 83 bpm with pvc and prolonged ID intervals. -Tramadol 50 mg TID PRN -Cardio cs : Dr. Mathias -ECHO showed EF of 53% with normal LV structure and function. AV mod calcified and trace MR and TR -f/u Rib xray 2. Dysphagia - Speech therapist recommend finely chopped food 3. Transaminitis -Improving -Hold statin, Tylenol -Abd US showed hepatic parenchymal dz of fatty infiltrate. Cholelithiasis 4. Dehydration -NS 80 cc - HHD 5. HTN -Metoprolol 6. HLD -Statin held for transaminitis 7. Constipation -Senokot - patient cannot take colace as it can't be crushed into food. 8. Epistaxis - Will put pt on humidified O2 - [place] nasal spray Dispo: PT/OT recommend PRAVEEN. F/U SW recs Discussed with attending, Dr. Gordon <Tucker Gordon - Last Filed: 12/17/16 14:01> Objective - Vital Signs/Intake and Output Vital Signs (last 24 hours): Temp Pulse Resp BP Pulse Ox 99.7 F H 102 H 21 147/93 H 98 12/17/16 12:00 12/17/16 12:00 12/17/16 12:00 12/17/16 12:00 12/17/16 06:00 Intake and Output: 12/17/16 12/17/16 06:59 18:59 Intake Total 0 Output Total 300 Balance -300 - Medications Medications: Current Medications Benzonatate (Tessalon Perles) 100 mg PO TID [facility] Last Admin: 12/17/16 13:03 Dose: 100 mg Sodium Chloride (Sodium Chloride 0.9%) 1,000 mls @ 80 mls/hr IV .[id number] [facility] Last Admin: 12/17/16 04:44 Dose: 80 mls/hr Pantoprazole Sodium (Protonix Inj) 40 mg IVP DAILY [facility] Last Admin: 12/17/16 09:19 Dose: 40 mg Sennosides (Senokot Tab) 8.6 mg PO DAILY [facility] Last Admin: 12/17/16 13:03 Dose: 8.6 mg Sodium Chloride ([place] Nasal [place]) 0 ml NS TID PRN PRN Reason: Nasal congestion Tramadol HCl (Ultram) 50 mg PO TID PRN PRN Reason: Pain, severe (8-10) - Labs Labs: 12/17/16 06:57 12/17/16 06:57 PT 10.8 Seconds (9.9-11.8) 12/15/16 11:15 INR 1.00 (0.93-1.08) 12/15/16 11:15 APTT 27.0 Seconds (23.7-30.8) 12/15/16 11:15 Attending/Attestation - Attestation I have personally seen and examined this patient.: Yes I have fully participated in the care of the patient.: Yes I have reviewed all pertinent clinical information, including history, physical exam and plan: Yes Notes (Text): I have seen and examined patient at bedside with the resident. Agree with the residents note with the following additions/ exceptions: This is 86 year old female who lives alone with history of HTN, dyslipidemia,VT, PE, anemia, osteoporosis, melanoma, multiple falls who got admitted for evaluation of chest pain which is reproducible to palpation. She denies LOC and states that she feels weak over all and has been falling for the past couple of months. Appetite has decreased. There is a bruise on her anterior chest wall which is tender. CT showed chronic changes. Serial troponins and EKG within normal limits. Cardiology consult appreciated. Echo pending. Denies any jaw pain today. Rib series result pending. Dehydration has improved. She also has transaminitis which has been improving. Abdominal ultrasound showed fatty infiltration. PT eval was done and they recommended PRAVEEN for her. Will discuss with bottle caser tomorrow. Patient had a mild nose bleed from both nostrils. Will start humidified oxygen and vaseline ointment. Discussed in detail with the patient. Dr Tucker Gordon
--- NOTE | 2016-12-17 13:26 | RAD ---
PROCEDURE: Chest and bilateral rib series dated 12/16/2016. HISTORY: contusion COMPARISON: TECHNIQUE: Frontal view of the chest and multiple views of the right and left ribs performed. Comparison made with prior chest radiograph 12/15/2016 FINDINGS: Heart size is within range of normal. Aorta is ectatic and uncoiled. Suspect eventration of both hemidiaphragms. On minor bibasilar atelectasis. No obvious pneumothorax is identified. . The visualized ribs appear grossly intact so far as can be seen however the ribs are demineralized limiting evaluation. If symptoms persist or occult fracture suspected clinically, consider repeat CT scan and chest. Impression: No definitive evidence of acute displaced rib fracture. If symptoms persist or occult fracture suspected clinically recommend followup CT scan chest. No obvious pneumothorax Probable eventration both hemidiaphragms with mild bibasilar atelectasis IMPRESSION: No definitive evidence of acute displaced rib fracture. If symptoms persist or occult fracture suspected clinically recommend followup CT scan chest. No obvious pneumothorax Probable eventration both hemidiaphragms with mild bibasilar atelectasis
[2016-12-17] MEDS ORDERED: Petrolatum Oint Foilpak (5 gm) TOP PRN (14:01)
--- NOTE | 2016-12-17 14:17 | PN ---
DATE: 12/17/2016 The patient is still experiencing steady sharp chest pain. She denies any shortness of breath or diz ziness. PHYSICAL EXAMINATION: VITAL SIGNS: Blood pressure 147/93, heart rate 102, temperature 99.7, respirations 21. HEENT: Normocephalic. NECK: No JVD. CHEST: Bilateral rhonchi. HEART: S1, S2 regular. EXTREMITIES: Significant muscle wasting. LABORATORIES: Hemoglobin and hematocrit 11.2 and 34.8, white count and platelet count are within nor mal limits. Today's SMA-7 is within normal limits. Calcium is below normal at 8.0. Troponin 0.05. Today's EKG revealed normal sinus rhythm. ASSESSMENT: 1. Multiple falls. 2. Atypical chest pain. Rib series reported no definite evidence of acute displaced rib fracture. If symptoms persist or occult fracture suspected clinically, recommend followup CT scan of the chest. 3. History of hypertension and hyperlipidemia. 4. History of melanoma, on immunotherapy. RECOMMENDATIONS: Continue current IV Protonix, normal saline infusion at 80 mL an hour, Ultram at 50 mg t.i.d. p.r.n. The case was discussed with the hospitalist, Dr. Gordon. I did review the echocardi ograph study, which revealed mild concentric left ventricular hypertrophy with normal systolic functi on, aortic sclerosis. No further cardiac workup is indicated. Alessandro Whiting MD cc: [id number] TT: 12/17/2016 14:16:54 Confirmation # [id number] Dictation # [id number] en
[2016-12-18 05:44] VITALS: O2SAT 92
[2016-12-18 06:52] LABS: ADD MANUAL DIFF? NO
[2016-12-18 07:07] LABS: GRAN # 4.86 (1.4-6.5); HEMATOCRIT 37.3 % (36.0-48.0); LYMPH # 0.7 (1.2-3.4); LYMPH % 10.6 % (22.0-35.0); MEAN CELL VOLUME 92.8 fL (80.0-105.0); MEAN CORPUSCULAR HEMOGLOBIN 30.1 pg (25.0-35.0); MEAN CORPUSCULAR HGB CONC 32.4 g/dl (31.0-37.0); MEAN PLATELET VOLUME 10.1 fl (7.0-11.0); MONO # 0.8 (0.1-0.6); MONO % 12.4 % (1.0-6.0); PLATELET COUNT 139 10^3/uL (120.0-450.0); RED CELL DISTRIBUTION WIDTH 13.5 % (11.5-14.5); WHITE BLOOD COUNT 6.3 10^3/ul (4.5-11.0)
[2016-12-18 07:29] LABS: ALB/GLOB RATIO 0.9 (1.1-1.8); ALKALINE PHOSPHATASE 60 U/L (38-133); ALT/SGPT 168 U/L (7-56); AST/SGOT 137 U/L (15-39); BILIRUBIN,TOTAL 0.8 mg/dL (0.2-1.3); BLOOD UREA NITROGEN 14 mg/dL (7-21); CALCIUM 8.1 mg/dL (8.4-10.5); CARBON DIOXIDE 29 mmol/L (21-33); CHLORIDE 104 mmol/L (98-107); GFR AFRICAN-AMERICAN > 60; GLUCOSE,RANDOM 85 mg/dL (70-110); POTASSIUM 3.5 mmol/L (3.6-5.0); SODIUM 136 mmol/L (132-148); TOTAL PROTEIN 5.8 g/dL (5.8-8.3)
[2016-12-18] MEDS: Pantoprazole 40 mg Susp UD PO SCH ×2 (08:02→08:17)
[2016-12-18] MEDS: Potassium Chloride 10 mEq ER Tab PO SCH ×2 (08:46→08:53)
[2016-12-18 12:00] VITALS: BP 143/93; RESP 24; TEMP 98.8
[2016-12-18] MEDS ORDERED: Potassium Chloride 10 mEq 100 ML IVPB ONE (13:10)
--- NOTE | 2016-12-18 13:18 | CP.PCM.DIS ---
<Marco A Wade - Last Filed: 12/18/16 13:15> Provider - Provider Date of Admission: 12/15/16 15:58 Attending physician: Tucker Gordon MD Time Spent in preparation of Discharge (in minutes): 45 Hospital Course - Lab Results Lab Results: Most Recent Lab Values WBC 6.3 10^3/ul (4.5-11.0) D 12/18/16 06:30 RBC 4.02 10^6/uL (3.5-6.1) 12/18/16 06:30 Hgb 12.1 gm/dL (12.0-16.0) 12/18/16 06:30 Hct 37.3 % (36.0-48.0) 12/18/16 06:30 MCV 92.8 fL (80.0-105.0) 12/18/16 06:30 MCH 30.1 pg (25.0-35.0) 12/18/16 06:30 MCHC 32.4 g/dl (31.0-37.0) 12/18/16 06:30 RDW 13.5 % (11.5-14.5) 12/18/16 06:30 Plt Count 139 10^3/uL (120.0-450.0) 12/18/16 06:30 MPV 10.1 fl (7.0-11.0) 12/18/16 06:30 Gran % 77.0 % (50.0-68.0) H 12/18/16 06:30 Lymph % (Auto) 10.6 % (22.0-35.0) L 12/18/16 06:30 Canyon % (Auto) 12.4 % (1.0-6.0) H 12/18/16 06:30 Eos % (Auto) 0.0 % (1.5-5.0) L 12/18/16 06:30 Baso % (Auto) 0.0 % (0.0-3.0) 12/18/16 06:30 Gran # 4.86 (1.4-6.5) 12/18/16 06:30 Lymph # 0.7 (1.2-3.4) L 12/18/16 06:30 Canyon # 0.8 (0.1-0.6) H 12/18/16 06:30 Eos # 0.0 (0.0-0.7) 12/18/16 06:30 Baso # 0.00 K/mm3 (0.0-2.0) 12/18/16 06:30 PT 10.8 Seconds (9.9-11.8) 12/15/16 11:15 INR 1.00 (0.93-1.08) 12/15/16 11:15 APTT 27.0 Seconds (23.7-30.8) 12/15/16 11:15 pO2 91 mm/Hg (30-55) H 12/15/16 11:15 VBG pH 7.41 (7.32-7.43) 12/15/16 11:15 VBG pCO2 38.0 (40-60) L 12/15/16 11:15 VBG HCO3 24.1 mmol/l (21-28) 12/15/16 11:15 VBG Total CO2 25.3 mmol.L (22-28) 12/15/16 11:15 VBG O2 Sat (Calc) 98.4 % (40-65) H 12/15/16 11:15 VBG Base Excess -0.3 mmol/L (0.0-2.0) L 12/15/16 11:15 VBG Potassium 4.5 mmol/L (3.6-5.2) 12/15/16 11:15 Sodium 141.0 mmol/L (132-148) 12/15/16 11:15 Chloride 111.0 mmol/L (98-107) H 12/15/16 11:15 Glucose 118 mg/dl (65-105) H 12/15/16 11:15 Lactate 1.5 mmol/L (0.7-2.1) 12/15/16 11:15 FiO2 21.0 % 12/15/16 11:15 Sodium 136 mmol/L (132-148) 12/18/16 06:30 Potassium 3.5 mmol/L (3.6-5.0) L 12/18/16 06:30 Chloride 104 mmol/L (98-107) 12/18/16 06:30 Carbon Dioxide 29 mmol/L (21-33) 12/18/16 06:30 Anion Gap 7 (10-20) L 12/18/16 06:30 BUN 14 mg/dL (7-21) 12/18/16 06:30 Creatinine 0.5 mg/dL (0.5-1.4) 12/18/16 06:30 Est GFR ( Amer) > 60 12/18/16 06:30 Est GFR (Non-Af Amer) > 60 12/18/16 06:30 Random Glucose 85 mg/dL (70-110) 12/18/16 06:30 Calcium 8.1 mg/dL (8.4-10.5) L 12/18/16 06:30 Phosphorus 3.6 mg/dL (2.5-4.5) 12/15/16 11:15 Magnesium 2.2 mg/dL (1.7-2.2) 12/15/16 11:15 Total Bilirubin 0.8 mg/dL (0.2-1.3) 12/18/16 06:30 AST 137 U/L (15-39) H 12/18/16 06:30 ALT 168 U/L (7-56) H 12/18/16 06:30 Alkaline Phosphatase 60 U/L (38-133) 12/18/16 06:30 Troponin I 0.05 ng/mL 12/17/16 07:00 NT-Pro-B Natriuret Pep 549 pg/mL (0-450) H 12/15/16 11:15 Total Protein 5.8 g/dL (5.8-8.3) 12/18/16 06:30 Albumin 2.8 g/dL (3.0-4.8) L 12/18/16 06:30 Globulin 3.1 gm/dL 12/18/16 06:30 Albumin/Globulin Ratio 0.9 (1.1-1.8) L 12/18/16 06:30 Procalcitonin < 0.05 NG/ML (0.19-0.49) L 12/15/16 11:15 TSH 3rd Generation 0.83 mIU/mL (0.46-4.68) 12/16/16 06:30 Venous Blood Potassium 4.5 mmol/L (3.6-5.2) 12/15/16 11:15 Urine Color Yellow (YELLOW) 12/15/16 11:30 Urine Appearance Clear (CLEAR) 12/15/16 11:30 Urine pH 6.0 (4.7-8.0) 12/15/16 11:30 Ur Specific Aurora >= 1.030 (1.005-1.035) 12/15/16 11:30 Urine Protein 30 mg/dL (<30 mg/dL) H 12/15/16 11:30 Urine Glucose (UA) Negative mg/dL (NEGATIVE) 12/15/16 11:30 Urine Ketones 40 mg/dL (NEGATIVE) H 12/15/16 11:30 Urine Blood Trace-intact (NEGATIVE) H 12/15/16 11:30 Urine Nitrate Negative (NEGATIVE) 12/15/16 11:30 Urine Bilirubin Negative (NEGATIVE) 12/15/16 11:30 Urine Urobilinogen 0.2 E.U./dL (<1 E.U./dL) 12/15/16 11:30 Ur Leukocyte Esterase Negative Patsy/uL (NEGATIVE) 12/15/16 11:30 Urine RBC 0 - 2 /hpf (0-2) 12/15/16 11:30 Urine WBC 1 - 3 /hpf (0-6) 12/15/16 11:30 Ur Epithelial Cells 0 - 2 /hpf (0-5) 12/15/16 11:30 Urine Bacteria Few (NEG) 12/15/16 11:30 Hepatitis A IgM Ab Negative (NEGATIVE) 12/16/16 08:17 Hep Bs Antigen Negative (NEGATIVE) 12/16/16 08:17 Hep B Core IgM Ab Negative (NEGATIVE) 12/16/16 08:17 Hepatitis C Antibody Negative (NEGATIVE) 12/16/16 08:17 - Hospital Course Hospital Course: 86 year old female, whose past medical history includes hypertension, hyperlipidemia, anemia, osteoporosis and 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 Daughter reports patient tripped 1 week ago, was brought to the emergency room and discharged home after normal xray and CT results. Daughter states patient tripped again 4 days ago landing on her buttock. Patient has been complaining of worsening chest wall pain and dry throat. Patient states the pain is worse with movement. Pain is reproducible. She reports lack of appetite and dysphagia. Patient denies any fever, chills, nausea, vomiting, diarrhea, rectal bleeding, abdominal pain, urinary symptoms, shortness of breath, syncopy, or any other complaints. In the past pt was seen by [employer]. In his note, pt had PE , NSTEMI, had cardiac cath in the past at [facility]. xray was negative for acute fracture of ribs. pt found to have transaminitis. Statin was held. Ultram was given for pain control. Pt was given IVF and swallow eval was consulted. Recommended fine chopped diet with thin liquids. During her stay, pt PO intake improved, and ambulated with PT. Pt is arranged to to go [facility]. SS: non smoker, no drinks, Lives at home by herself. Daughter lives near by. Discharge Exam - Head Exam Head Exam: ATRAUMATIC - Eye Exam Eye Exam: EOMI, Normal appearance, PERRL Pupil Exam: NORMAL ACCOMODATION, PERRL - Respiratory Exam Respiratory Exam: Clear to PA & Lateral, NORMAL BREATHING PATTERN, UNREMARKABLE - Cardiovascular Exam Cardiovascular Exam: REGULAR RHYTHM, +S1, +S2 - GI/Abdominal Exam GI & Abdominal Exam: Normal Bowel Sounds, Unremarkable - Extremities Exam Extremities exam: pedal pulses present - Back Exam Back exam: NORMAL INSPECTION - Neurological Exam Neurological exam: Alert, CN II-XII Intact, Oriented x3, Reflexes Normal - Psychiatric Exam Psychiatric exam: Normal Affect, Normal Mood - Skin Skin Exam: Abrasion, Dry, Intact, Warm Discharge Plan - Follow Up Plan Condition: FAIR Disposition: NURSING FACILITY MEDICAID CERT Patient education suggested?: Yes Instructions: Chest Pain (DC), Chest Pain (GEN), Dehydration (DC), Dehydration (GEN) Additional Instructions: Avoid statin Fine chopped diet with thin liquids <Tucker Gordon - Last Filed: 12/18/16 13:51> Provider - Provider Date of Admission: 12/15/16 15:58 Attending physician: Tucker Gordon MD Hospital Course - Lab Results Lab Results: Most Recent Lab Values WBC 6.3 10^3/ul (4.5-11.0) D 12/18/16 06:30 RBC 4.02 10^6/uL (3.5-6.1) 12/18/16 06:30 Hgb 12.1 gm/dL (12.0-16.0) 12/18/16 06:30 Hct 37.3 % (36.0-48.0) 12/18/16 06:30 MCV 92.8 fL (80.0-105.0) 12/18/16 06:30 MCH 30.1 pg (25.0-35.0) 12/18/16 06:30 MCHC 32.4 g/dl (31.0-37.0) 12/18/16 06:30 RDW 13.5 % (11.5-14.5) 12/18/16 06:30 Plt Count 139 10^3/uL (120.0-450.0) 12/18/16 06:30 MPV 10.1 fl (7.0-11.0) 12/18/16 06:30 Gran % 77.0 % (50.0-68.0) H 12/18/16 06:30 Lymph % (Auto) 10.6 % (22.0-35.0) L 12/18/16 06:30 Canyon % (Auto) 12.4 % (1.0-6.0) H 12/18/16 06:30 Eos % (Auto) 0.0 % (1.5-5.0) L 12/18/16 06:30 Baso % (Auto) 0.0 % (0.0-3.0) 12/18/16 06:30 Gran # 4.86 (1.4-6.5) 12/18/16 06:30 Lymph # 0.7 (1.2-3.4) L 12/18/16 06:30 Canyon # 0.8 (0.1-0.6) H 12/18/16 06:30 Eos # 0.0 (0.0-0.7) 12/18/16 06:30 Baso # 0.00 K/mm3 (0.0-2.0) 12/18/16 06:30 PT 10.8 Seconds (9.9-11.8) 12/15/16 11:15 INR 1.00 (0.93-1.08) 12/15/16 11:15 APTT 27.0 Seconds (23.7-30.8) 12/15/16 11:15 pO2 91 mm/Hg (30-55) H 12/15/16 11:15 VBG pH 7.41 (7.32-7.43) 12/15/16 11:15 VBG pCO2 38.0 (40-60) L 12/15/16 11:15 VBG HCO3 24.1 mmol/l (21-28) 12/15/16 11:15 VBG Total CO2 25.3 mmol.L (22-28) 12/15/16 11:15 VBG O2 Sat (Calc) 98.4 % (40-65) H 12/15/16 11:15 VBG Base Excess -0.3 mmol/L (0.0-2.0) L 12/15/16 11:15 VBG Potassium 4.5 mmol/L (3.6-5.2) 12/15/16 11:15 Sodium 141.0 mmol/L (132-148) 12/15/16 11:15 Chloride 111.0 mmol/L (98-107) H 12/15/16 11:15 Glucose 118 mg/dl (65-105) H 12/15/16 11:15 Lactate 1.5 mmol/L (0.7-2.1) 12/15/16 11:15 FiO2 21.0 % 12/15/16 11:15 Sodium 136 mmol/L (132-148) 12/18/16 06:30 Potassium 3.5 mmol/L (3.6-5.0) L 12/18/16 06:30 Chloride 104 mmol/L (98-107) 12/18/16 06:30 Carbon Dioxide 29 mmol/L (21-33) 12/18/16 06:30 Anion Gap 7 (10-20) L 12/18/16 06:30 BUN 14 mg/dL (7-21) 12/18/16 06:30 Creatinine 0.5 mg/dL (0.5-1.4) 12/18/16 06:30 Est GFR ( Amer) > 60 12/18/16 06:30 Est GFR (Non-Af Amer) > 60 12/18/16 06:30 Random Glucose 85 mg/dL (70-110) 12/18/16 06:30 Calcium 8.1 mg/dL (8.4-10.5) L 12/18/16 06:30 Phosphorus 3.6 mg/dL (2.5-4.5) 12/15/16 11:15 Magnesium 2.2 mg/dL (1.7-2.2) 12/15/16 11:15 Total Bilirubin 0.8 mg/dL (0.2-1.3) 12/18/16 06:30 AST 137 U/L (15-39) H 12/18/16 06:30 ALT 168 U/L (7-56) H 12/18/16 06:30 Alkaline Phosphatase 60 U/L (38-133) 12/18/16 06:30 Troponin I 0.05 ng/mL 12/17/16 07:00 NT-Pro-B Natriuret Pep 549 pg/mL (0-450) H 12/15/16 11:15 Total Protein 5.8 g/dL (5.8-8.3) 12/18/16 06:30 Albumin 2.8 g/dL (3.0-4.8) L 12/18/16 06:30 Globulin 3.1 gm/dL 12/18/16 06:30 Albumin/Globulin Ratio 0.9 (1.1-1.8) L 12/18/16 06:30 Procalcitonin < 0.05 NG/ML (0.19-0.49) L 12/15/16 11:15 TSH 3rd Generation 0.83 mIU/mL (0.46-4.68) 12/16/16 06:30 Venous Blood Potassium 4.5 mmol/L (3.6-5.2) 12/15/16 11:15 Urine Color Yellow (YELLOW) 12/15/16 11:30 Urine Appearance Clear (CLEAR) 12/15/16 11:30 Urine pH 6.0 (4.7-8.0) 12/15/16 11:30 Ur Specific Aurora >= 1.030 (1.005-1.035) 12/15/16 11:30 Urine Protein 30 mg/dL (<30 mg/dL) H 12/15/16 11:30 Urine Glucose (UA) Negative mg/dL (NEGATIVE) 12/15/16 11:30 Urine Ketones 40 mg/dL (NEGATIVE) H 12/15/16 11:30 Urine Blood Trace-intact (NEGATIVE) H 12/15/16 11:30 Urine Nitrate Negative (NEGATIVE) 12/15/16 11:30 Urine Bilirubin Negative (NEGATIVE) 12/15/16 11:30 Urine Urobilinogen 0.2 E.U./dL (<1 E.U./dL) 12/15/16 11:30 Ur Leukocyte Esterase Negative Patsy/uL (NEGATIVE) 12/15/16 11:30 Urine RBC 0 - 2 /hpf (0-2) 12/15/16 11:30 Urine WBC 1 - 3 /hpf (0-6) 12/15/16 11:30 Ur Epithelial Cells 0 - 2 /hpf (0-5) 12/15/16 11:30 Urine Bacteria Few (NEG) 12/15/16 11:30 Hepatitis A IgM Ab Negative (NEGATIVE) 12/16/16 08:17 Hep Bs Antigen Negative (NEGATIVE) 12/16/16 08:17 Hep B Core IgM Ab Negative (NEGATIVE) 12/16/16 08:17 Hepatitis C Antibody Negative (NEGATIVE) 12/16/16 08:17 Attending/Attestation - Attestation I have personally seen and examined this patient.: Yes I have fully participated in the care of the patient.: Yes I have reviewed all pertinent clinical information, including history, physical exam and plan: Yes Notes (Text): I have seen and examined patient at bedside with the resident. Agree with the residents note with the following additions/ exceptions: This is 86 year old female who lives alone with history of HTN, dyslipidemia,HI, PE, anemia, osteoporosis, melanoma, multiple falls who got admitted for evaluation of chest pain which is reproducible to palpation. She denies LOC and states that she feels weak over all and has been falling for the past couple of months. Appetite has decreased. There is a bruise on her anterior chest wall which is tender. CT showed chronic changes. Serial troponins and EKG within normal limits. Cardiology consult appreciated. Echo showed mild LVH, normal LVEF and AV moderately calcified. Denies any jaw pain today. Rib series reviewed. Dehydration has improved. She also has transaminitis which has been improving. Abdominal ultrasound showed fatty infiltration. PT eval was done and they recommended [facility] for her. Discussed with case investigator. Lists of rehab facilities given to the patient. Upon discharge patient will follow up with Dr Phillips. Dr Tucker Gordon
[2016-12-18 14:43] VITALS: PULSE 103
--- NOTE | 2016-12-18 15:18 | PN ---
DATE: 12/18/2016 The patient is in room 267, bed 2. REASON FOR CONSULTATION: Chest pain. HISTORY OF PRESENT ILLNESS: An 86-year-old female, known case of hypertension, hyperlipidemia, osteo porosis, vertebral fracture, melanoma on immunotherapy, was admitted to the hospital with recurrent f alls and sharp chest pain at a localized point where she had also marked tenderness. The patient britney es in a senior citizen building by herself. The patient had a cardiac catheterization a few years ag o and was told nonobstructive coronary artery disease. The patient also had phlebitis and pulmonary embolism in 2014, which was treated with anticoagulation. The patient sitting in bed without any res piratory distress or palpitation. She still has pain in the chest with local tenderness. PHYSICAL EXAMINATION: VITAL SIGNS: Blood pressure 136/81, respirations 20, pulse 90, temperature 97.3. HEAD: Normocephalic. EYES: Pupils normal. Conjunctivae normal. NOSE AND THROAT: Normal. NECK: JVP low. Carotid equal. THORAX: AP diameter normal. LUNGS: Clear. CARDIOVASCULAR: S1, S2. CHEST WALL: Shows tenderness at the area of the pain. ABDOMEN: Soft, no tenderness, no organomegaly. EXTREMITIES: No clubbing, no cyanosis. LABORATORIES: WBC 6.3, hemoglobin 12.1, hematocrit 37.3, platelets 139. Sodium 136, potassium 3.5, BUN 14, creatinine 0.5. AST 137, ALT 168. Troponin x 3 negative. Total protein 5.8, albumin 2.8. DIAGNOSES: Recurrent falls, chest pain, musculoskeletal with local tenderness related to the fall, h istory of hypertension, hyperlipidemia, history of melanoma on immunotherapy, hypokalemia. The patie nt had echocardiogram 12/16/2016, which showed left ventricular ejection fraction 53%, mild concentric left ventricular hypertrophy, normal left ventricular systolic function, aortic valve shows moderate calcification, trace mitral regurgitation, trace tricuspid regurgitation. PLAN: Gait therapy has been already ordered. The patient received 1 IV 10 mEq and 10 mEq p.o., Prot john 40 daily, getting IV fluid normal saline 80 mL an hour, tramadol for pain. We will continue pre sent therapy. We will follow with you. Anabela Woody MD cc: [id number] TT: 12/18/2016 15:17:20 Confirmation # [id number] Dictation # [id number] en
== END 2016-12-18 16:31 | DRG 605 ==
LOC: ED 10:33 → ERH 14:49 → OBSVTOIN 15:58 → 2RNO 16:49
PROVIDERS: ADMIT Hospitalist; ATTEND Hospitalist
DX: S20.219A Contusion of unspecified front wall of thorax, initial encounter (principal); R64 Cachexia; R07.89 Other chest pain; C43.9 Malignant melanoma of skin, unspecified; E86.0 Dehydration; R13.10 Dysphagia, unspecified; I11.9 Hypertensive heart disease without heart failure; I51.7 Cardiomegaly; E78.5 Hyperlipidemia, unspecified; D64.9 Anemia, unspecified; M81.0 Age-related osteoporosis without current pathological fracture; R29.6 Repeated falls; I25.10 Atherosclerotic heart disease of native coronary artery without angina pectoris; K80.20 Calculus of gallbladder without cholecystitis without obstruction; W01.0XXA Fall on same level from slipping, tripping and stumbling without subsequent striking against object, initial encounter; Z68.21 Body mass index [BMI] 21.0-21.9, adult; Z86.711 Personal history of pulmonary embolism; I25.2 Old myocardial infarction; Z91.81 History of falling; Y92.9 Unspecified place or not applicable; Z79.899 Other long term (current) drug therapy